=== PATIENT | female | born 1935 | race Caucasian/White ===

== ENCOUNTER 2024-02-24 18:06 | Emergency (ER) | payer OTHER, SELFPAY ==
[2024-02-24 18:13] VITALS: BP 136/59; PULSE 87; RESP 16; TEMP 36.7; O2SAT 93; BMI 29.2
--- NOTE | 2024-02-24 20:39 | ED_ITS ---
HPI - Extremity Injury (Upper) General Chief Complaint: Extremity Injury, Upper Stated Complaint: injured rt arm Time Seen by Provider: 02/24/24 19:10 History of Present Illness HPI narrative: 89-year-old female presents for evaluation of right forearm wound. Patient states that she has very thin skin and accidentally hit her right forearm against some lawn furniture, causing a large skin tear. She states that someone nearby was a physical therapist who evaluated the wound and told her that she should come to the emergency department for evaluation. Related Data Allergies Allergy/AdvReac Type Severity Reaction Status Date / Time allopurinol Allergy Verified 02/24/24 18:31 codeine Allergy Verified 02/24/24 18:31 Penicillins Allergy Verified 02/24/24 18:31 Patient History Social History Smoking Status: Former smoker Smoking Status: Former smoker alcohol intake frequency: a few times a week Exam Initial Vital Signs Initial Vital Signs: Vital Signs Temperature 98.1 F 02/24/24 18:13 Pulse Rate 87 02/24/24 18:13 Respiratory Rate 16 02/24/24 18:13 Blood Pressure 136/59 L 02/24/24 18:13 Pulse Oximetry 93 02/24/24 18:13 Oxygen Delivery Method Room Air 02/24/24 18:13 Const: Awake, alert, no acute distress, nontoxic appearing Skin: 5 cm skin tear dorsal forearm Neuro: AO x3, CN II-XII grossly intact, moves all extremities Course Vital Signs Vital signs: Vital Signs - 8 hr 02/24/24 18:13 Temperature 98.1 F Pulse Rate 87 Respiratory Rate 16 Blood Pressure 136/59 L Pulse Oximetry 93 Oxygen Delivery Method Room Air MDM - Extremity Injury (Upper) MDM Narrative Medical decision making narrative: Well-appearing patient with accidental forearm skin tear. Skin is too thin to b e amenable to sutures. Wound cleaned by nursing staff, Xeroform gauze and clean dressing applied. Patient counseled on anticipated course of recovery for skin tears. Additional bandage supplies sent with the patient upon discharge. Discharge Plan Departure Patient Disposition: Home Clinical Impression: Skin tear of right forearm without complication Qualifiers: Encounter type: initial encounter Qualified Code(s): S51.811A - Laceration without foreign body of right forearm, initial encounter Instructions: DI for Avulsion Laceration (Not Requiring Sutures) Activity Restrictions/Additional Instructions: Unfortunately the skin of your forearm is too thin for sewing. Your skin will gradually heal on its own. Change your dressing daily, keep the wound clean and dry. If you notice redness, drainage, swelling please return for repeat evaluation. Stand Alone Forms: Patient Portal/API
== END 2024-02-24 21:03 | disposition home or self-care (01) ==
PROVIDERS: Emergency Provider Emergency Medicine
DX: W22.8XXA Striking against or struck by other objects, initial encounter (principal); S51.811A Laceration without foreign body of right forearm, initial encounter
CPT/HCPCS: 99281; 99282